=== PATIENT | female | born 1985 | race Caucasian/White ===

== ENCOUNTER 2020-09-30 20:00 | Emergency (ER) | payer SELFPAY ==
[2020-09-30 20:45] VITALS: BP 94/59; PULSE 54; RESP 18; TEMP 36.7; O2SAT 98; BMI 18.8
--- NOTE | 2020-09-30 20:54 | ED_ITS ---
HPI - Abdominal Pain General: Chief Complaint: Abdominal Pain Stated Complaint: severe right ab pain Time Seen by Provider: 09/30/20 20:53 History of Present Illness: HPI narrative: Patient is a 35-year-old female comes to the ED with abdominal pain and nausea. Patient says symptoms started early this morning and woke her up. She says her pain is located in the right upper quadrant and she rates it about an 8 out of 10. She describes it as a sharp pain. She reports also having some nausea and has had 1 episode of emesis today. She says pain gets worse after she eats something. She also describes for the last couple weeks having some nausea and abdominal pain after she eats certain foods. Patient has a past surgical history of an appendectomy. Denies any fever, chills, chest pain, shortness of breath, diarrhea, constipation, dysuria or hematuria. Associated Symptoms: Reports nausea and vomiting; Denies chills, constipation, diarrhea, dysuria, fever(s), hematochezia and hematuria Review of Systems Const: Denies: fever(s), chills or fatigue Eyes: Denies: change in vision or eye discomfort ENMT: Denies: throat pain, odynophagia, nasal discharge or nasal congestion Card: Denies: chest pain, palpitations, edema, swelling of feet/ankles, dyspnea on exertion or orthopnea Resp: Denies: dyspnea, productive cough or non-productive cough GI: Reports: abdominal pain, nausea and vomiting; Denies: diarrhea, constipation or hematochezia : Denies: flank pain, dysuria or hematuria Musc: Denies: neck pain, back pain or extremity swelling Skin/Breast: Denies: rash or new lesions Neuro: Denies: headache(s), numbness in extremities or weakness in extremities Physical Exam Const: COMMON NORMALS: patient oriented x3 and alert GENERAL APPEARANCE: cooperative and in distress (Patient appears in some pain and is in the position when I enter the ) HENMT: COMMON NORMALS: normocephalic HEAD & SCALP: normocephalic MOUTH: Normal oral and palatal mucosa present THROAT: posterior oropharynx normal and uvula midline Eye: COMMON NORMALS: Equal, round and reactive pupils present PUPIL: Yes Equal, round and reactive pupils present Neck/C-Spine: COMMON NORMALS: supple GENERAL: Yes normal visual inspection Resp: COMMON NORMALS: normal respiratory effort, No retractions, No use of accessory muscles and clear to auscultation bilaterally AUSCULTATION: clear to auscultation bilaterally Cardio: COMMON NORMALS: regular rate, regular rhythm, S1 normal heart sound present, S2 normal heart sound present, No gallops present (Cardio), No clicks present (Cardio), No murmurs present (Cardio) and Peripheral pulses 2+ throughout RATE: regular rate RHYTHM: regular rhythm HEART SOUNDS: S1 normal heart sound present and S2 normal heart sound present PERIPHERAL PULSES: Peripheral pulses 2+ throughout GI: COMMON NORMALS: Normal to inspection, nondistended, normoactive bowel sounds present, Soft to palpation and no masses PALPATION: Yes Soft to palpation and Yes Tenderness to palpation present (GI) Details: RUQ (Chaudhry sign positive) : COMMON NORMALS: Yes no CVA tenderness BLADDER/KIDNEY EXAM: Yes no CVA tenderness Back/Pelvis: COMMON NORMALS: no CVA tenderness Extremity: COMMON NORMALS: normal to inspection and no pedal edema Neuro: COMMON NORMALS: patient oriented x3 SENSORIUM/ORIENTATION: Yes alert GAIT: Yes Normal gait present Skin: GENERAL SKIN EXAM: dry skin Course Reevaluation(s): Reevaluation #1: Patient says her symptoms have greatly improved and she has no more pain currently. I also talked with patient about her hemoglobin being low and she told me that she has been diagnosed with anemia in the past and was taking iron supplements to treat it. Patient feels comfortable and ready to discharge. Time: 22:18 Vital Signs: Vital signs: Vital Signs Temperature 98.1 F 09/30/20 23:01 Pulse Rate 52 L 09/30/20 23:01 Respiratory Rate 14 09/30/20 23:01 Blood Pressure 98/62 09/30/20 23:01 Pulse Oximetry 98 09/30/20 23:01 MDM - Abdominal Pain MDM Narrative: Medical decision making narrative: Patient is a 35-year-old female comes to the ED with abdominal pain and nausea. Abdominal pain is located in the right upper quadrant. Patient says she has had symptoms like this in the past but today pain was more severe. She says it gets worse with food and with certain types of food. Exam findings remarkable for right upper quadrant tenderness and positive Chaudhry sign. No other remarkable exam findings. Vital stable. Hemoglobin 9.9 rest of CBC and CMP were unremarkable. Lipase normal hCG negative. UA unremarkable. Ultrasound gallbladder showed no acute gallbladder findings, no gallstones and common bile duct was normal. Patient was diagnosed with biliary colic and anemia. She was told to follow-up with her PCP in the next 3 to 5 days to recheck her hemoglobin. I have placed an order with case management for patient to be referred to general surgery for evaluation of her gallbladder. Patient was discharged with a written prescription of hydrocodone 5/325 mg #8 tablets and Zofran. Patient told to start with clear liquid diet and advance as tolerated. Return to ED precautions given. I told her that porter sample case will contact her in a several days set up appoint with general surgery. Patient understood agree with plan. Lab Data: Attestation: I reviewed the patient's lab results. Labs: Lab Results 09/30/20 09/30/20 09/30/20 Range/Units 19:30 19:30 21:16 WBC 7.1 (4.0-10.0) 10^3/ uL RBC 3.62 L (4.1-5.3) 10^6/u L Hgb 9.9 L (11.5-15.3) g/dL Hct 31.7 L (37.0-47.0) % MCV 87.6 (81-99) fL MCH 27.3 L (28.0-34.0) pg MCHC 31.2 (30.0-36.0) g/dL RDW 16.2 H (12.1-15.1) % Plt Count 268 (130-400) 10^3/c mm MPV 10.4 (7.4-10.4) fL Neut % (Auto) 55.5 % Lymph % (Auto) 34.1 % [place] % (Auto) 7.6 % Eos % (Auto) 1.7 % Baso % (Auto) 1.0 % Neut # (Auto) 3.93 (1.8-7.7) 10^3/u L Lymph # (Auto) 2.4 (0.8-4.8) 10^3/u L [place] # (Auto) 0.5 (0.2-0.9) 10^3/u L Eos # (Auto) 0.1 (0.0-0.8) 10^3/u L Baso # (Auto) 0.1 (0.0-0.1) 10^3/u L Nucleated RBC % (a uto) 0 % Nucleated RBCs # 0.0 /100WBC Sodium 135 L (136-145) mmol/L Potassium 3.9 (3.5-5.1) mmol/L Chloride 104 (98-107) mmol/L Carbon Dioxide 24 (22-29) mmol/L Anion Gap 10.9 (5-19) BUN 8 (6-20) mg/dL Creatinine 0.6 (0.5-0.9) mg/dL GFR Calculation 115.1 (90-130) mL/min Glucose 96 (65-115) mg/dL Calculated Osmolal ity 278 L (285-295) mOsm/k g Calcium 8.4 L (8.5-10.5) mg/dL Total Bilirubin 0.2 (0.15-1.2) mg/dL AST 15 (0-32) U/L ALT 12 (0-33) U/L Alkaline Phosphata se 62 (35-105) IU/L Total Protein 6.5 L (6.6-8.7) g/dL Albumin 4.0 (3.5-5.2) g/dL Globulin 2.5 (1.3-4.6) g/dL Lipase 29 (13-60) U/L HCG, Qual Negative (Negative) Urine Color (Yellow) Urine Appearance (CLEAR) Urine pH (5-7) Ur Specific Gravit y (1.005-1.030) Urine Protein (Negative) Urine Glucose (UA) (Normal) Urine Ketones (Negative) Urine Blood (Negative) Urine Nitrate (Negative) Urine Bilirubin (Negative) Urine Urobilinogen (Negative) mg/dL Ur Leukocyte Nichole ase (Negative) 09/30/20 Range/Units 21:16 WBC (4.0-10.0) 10^3/ uL RBC (4.1-5.3) 10^6/u L Hgb (11.5-15.3) g/dL Hct (37.0-47.0) % MCV (81-99) fL MCH (28.0-34.0) pg MCHC (30.0-36.0) g/dL RDW (12.1-15.1) % Plt Count (130-400) 10^3/c mm MPV (7.4-10.4) fL Neut % (Auto) % Lymph % (Auto) % [place] % (Auto) % Eos % (Auto) % Baso % (Auto) % Neut # (Auto) (1.8-7.7) 10^3/u L Lymph # (Auto) (0.8-4.8) 10^3/u L [place] # (Auto) (0.2-0.9) 10^3/u L Eos # (Auto) (0.0-0.8) 10^3/u L Baso # (Auto) (0.0-0.1) 10^3/u L Nucleated RBC % (a uto) % Nucleated RBCs # /100WBC Sodium (136-145) mmol/L Potassium (3.5-5.1) mmol/L Chloride (98-107) mmol/L Carbon Dioxide (22-29) mmol/L Anion Gap (5-19) BUN (6-20) mg/dL Creatinine (0.5-0.9) mg/dL GFR Calculation (90-130) mL/min Glucose (65-115) mg/dL Calculated Osmolal ity (285-295) mOsm/k g Calcium (8.5-10.5) mg/dL Total Bilirubin (0.15-1.2) mg/dL AST (0-32) U/L ALT (0-33) U/L Alkaline Phosphata se (35-105) IU/L Total Protein (6.6-8.7) g/dL Albumin (3.5-5.2) g/dL Globulin (1.3-4.6) g/dL Lipase (13-60) U/L HCG, Qual (Negative) Urine Color Yellow (Yellow) Urine Appearance Clear (CLEAR) Urine pH 7 (5-7) Ur Specific Gravit y 1.005 (1.005-1.030) Urine Protein Neg (Negative) Urine Glucose (UA) Norm (Normal) Urine Ketones Negative (Negative) Urine Blood Neg (Negative) Urine Nitrate Negative (Negative) Urine Bilirubin Neg (Negative) Urine Urobilinogen Norm (Negative) mg/dL Ur Leukocyte Nichole ase Negative (Negative) Imaging Data ^: US: Attestation: I personally reviewed and interpreted this imaging study as follows: Radiologist's impression: Ultrasound gallbladder?prelim report?no acute gallbladder findings. No gallstones seen. Common bile duct normal. Discharge Plan Discharge Patient Disposition: Home Clinical Impression: Biliary colic Anemia Qualifiers: Anemia type: unspecified type Qualified Code(s): D64.9 - Anemia, unspecified Condition: Stable Prescriptions: New Zofran 4 mg tablet 4 mg PO Q8H Qty: 20 RF: 0 No Action omeprazole 40 mg Capsule,Delayed Release(Dr/Ec) 40 mg PO BID RF: 0 Discharge Orders: Discharge ED (Routine); Ordered 09/30/20 Ordered By: Sunil Miller Discharge Diet: Advance as tolerated and Clear Liquid Discharge Activity: Increase activity as tolerated Patient Instructions: Biliary Colic (ED), Anemia (ED), Opioid Safety Activity Restrictions/Additional Instructions: Follow-up with medical provider as directed. Contact your PCP and have your hemoglobin lab rechecked in the next 3 to 5 days. Case management will contact you in the next several days to set up an appointment with a general surgeon. Take medications as prescribed. Start with clear liquid diet then advance as tolerated. Avoid foods that aggravate symptoms. Return to the ER or your medical provider if condition worsens. Please read and understand discharge instructions. If any questions, please ask. Stand Alone Forms: Work/School Release Coding Level of Care Code ED Set Up [employer] for [employer] Fwalysa Exam Comprehensive
--- NOTE | 2020-09-30 21:01 | US_ITS ---
WS: [id number] ULTRASOUND ABDOMEN LIMITED CLINICAL INFORMATION: ruq tenderness, nauseous and positive Chaudhry sign. COMPARISON: None. FINDINGS: Prior appendectomy. Liver Size: Normal. Craniocaudal length: 13.4 cm. Echogenicity: Normal. Surface nodularity: None. Mass (size and location): None. Bile ducts Intrahepatic ducts: Normal. Common bile duct diameter: 0.5 cm. Gallbladder Normal. Gallstones: None. Gallbladder sludge: None. Gallbladder wall thickening: None. Pericholecystic fluid: None. Sonographic Chaudhry sign: Absent. Pancreas Normal as visualized. Right kidney: Normal. Hydronephrosis: None. Size: 10.7 cm x 5.3 cm x 4.9 cm. Abdominal aorta and IVC Visualized portions are normal. Ascites: None. US/US gall bladder [id number] IMPRESSION: Normal right upper quadrant ultrasound.
--- NOTE | 2020-09-30 21:05 | PC.PHAR ---
PT STATES SHE TOOK A NORCO 5/325 TO THAT WAS PRESCRIBED TO SOMEONE ELSE. SHE STATES SHE JUST NEEDED IT FOR THE PAIN.
[2020-09-30 21:21] LABS: Add Urine Microscopic? NO; Charge for UA Resulting for Rev
[2020-09-30 21:24] LABS: Bilirubin Urine Neg (Negative); Blood Urine Neg (Negative); Glucose Urine UA Norm (Normal); Ketones Urine Negative (Negative); Leukocyte Esterase Urine Negative (Negative); Nitrate Urine Negative (Negative); Protein Urine Neg (Negative); Specific Gravity, Urine 1.005 (1.005-1.030); Urine Appearance Clear (CLEAR); Urine Color Yellow (Yellow); Urobilinogen Urine Norm (Negative); pH Urine 7 (5-7)
[2020-09-30] MEDS: sodium chloride 0.9% 1,000 ML 999 ML IV (21:27)
[2020-09-30 21:28] VITALS: RESP 16; O2SAT 98
[2020-09-30] MEDS: morphine 4 mg/mL SDV 1 mL IVP (21:28)
[2020-09-30] MEDS: ondansetron 2 mg/ML SDV 2 mL 4 MG IVP (21:28)
[2020-09-30 21:36] LABS: Basophils # 0.1 10^3/uL (0.0-0.1); Eosinophils # 0.1 10^3/uL (0.0-0.8); Eosinophils % 1.7 %; Hematocrit 31.7 % (37.0-47.0); Hemoglobin 9.9 g/dL (11.5-15.3); Lymphocytes # 2.4 10^3/uL (0.8-4.8); Lymphocytes % 34.1 %; Mean Corpuscular HGB Conc 31.2 g/dL (30.0-36.0); Mean Corpuscular Hemoglobin 27.3 pg (28.0-34.0); Mean Corpuscular Volume 87.6 fL (81-99); Mean Platelet Volume 10.4 fL (7.4-10.4); Monocytes # 0.5 10^3/uL (0.2-0.9); Monocytes % 7.6 %; Neutrophils # 3.93 10^3/uL (1.8-7.7); Neutrophils % 55.5 %; Nucleated Red Blood Cells % 0 %; Platelet Count 268 10^3/cmm (130-400); Red Blood Count 3.62 10^6/uL (4.1-5.3); Red Cell Distribution Width 16.2 % (12.1-15.1); White Blood Count 7.1 10^3/uL (4.0-10.0)
[2020-09-30 21:53] LABS: Alanine Aminotransferase 12 U/L (0-33); Alkaline Phosphatase 62 IU/L (35-105); Anion Gap 10.9 (5-19); Aspartate Amino Transferase 15 U/L (0-32); Blood Urea Nitrogen 8 mg/dL (6-20); Calcium 8.4 mg/dL (8.5-10.5); Carbon Dioxide 24 mmol/L (22-29); Chloride 104 mmol/L (98-107); Globulin 2.5 g/dL (1.3-4.6); Glomerular Filtration Rate 115.1 mL/min (90-130); Glucose 96 mg/dL (65-115); Lipase 29 U/L (13-60); Osmolality Calculated 278 mOsm/kg (285-295); Potassium 3.9 mmol/L (3.5-5.1); Sodium 135 mmol/L (136-145); Total Bilirubin 0.2 mg/dL (0.15-1.2); Total Protein 6.5 g/dL (6.6-8.7)
[2020-09-30 22:32] LABS: HCG Qualitative Urine. Negative (Negative)
[2020-09-30] MEDS: HYDROcodone-acetaminophen 5-325 mg Tablet 1 TAB PO (22:55)
[2020-09-30 23:01] VITALS: BP 98/62; PULSE 52; RESP 14; TEMP 36.7; O2SAT 98
--- NOTE | 2020-10-01 08:47 | DCPLANNER ---
system administration manager had message to schedule a followup appointment for patient with general surgery for biliary colic. system administration manager emailed patients information to David at [facility] General Surgery. Patients information will be printed and reviewed. Clinic will call patient with appointment information.
--- NOTE | 2020-10-03 08:30 | DCPLANNER ---
Patient had a follow up appointment scheduled for 10.02.[address] Lockhart at [facility] General Surgery - patient did attend appointment.
== END 2020-09-30 23:03 | disposition home or self-care (01) ==
PROVIDERS: Emergency Medicine; Emergency Provider Physician Assistant
DX: K80.50 Calculus of bile duct without cholangitis or cholecystitis without obstruction (principal); D64.9 Anemia, unspecified
CPT/HCPCS: 76705; 80053; 81003; 81025; 83690; 85025; 96361; 96374; 96375; 99284; J2270; J2405; J7030

== ENCOUNTER 2020-10-15 09:43 | Outpatient (CLI) | payer SELFPAY ==
--- NOTE | 2020-10-15 10:00 | NM_ITS ---
WS: [id number] NUCLEAR MEDICINE HIDA SCAN CLINICAL INFORMATION: K80.50 - Calculus of bile duct without cholangitis or cholecystitis without obs truction TECHNIQUE: Following intravenous administration of 7.9 mCi of technetium 99m mebrofenin, images of th e abdomen were obtained over the course of 60 minutes. Next, gallbladder ejection fraction was determ ined by obtaining preprandial and one-hour postprandial images of the gallbladder following oral harsha stion of Ensure. COMPARISON: Ultrasound September 30, 2020 FINDINGS: Normal hepatic uptake at 5 minutes. Normal hepatic excretion. Gallbladder is visualized by 15 minutes . No evidence of acute cholecystitis. Normal small bowel and colon bile duct activity. No evidence of obstructive choledocholithiasis. Gall bladder ejection fraction 85% within normal limits. No evidence of chronic cholecystitis. NM/NM hepatobiliary w phar* [id number] IMPRESSION: 1. No evidence of acute or chronic cholecystitis. 2. Normal gallbladder ejection fraction 85% within normal limits.
== END 2020-10-15 09:44 | disposition home or self-care (01) ==
PROVIDERS: Visit Provider Surgery
DX: K80.50 Calculus of bile duct without cholangitis or cholecystitis without obstruction (principal)
CPT/HCPCS: 78227; A9537

== ENCOUNTER 2021-05-11 19:28 | Emergency (ER) | payer SELFPAY ==
[2021-05-11 20:26] VITALS: BP 91/49; PULSE 69; RESP 18; TEMP 36.4; O2SAT 97; BMI 17.2
[2021-05-11 21:15] VITALS: BP 97/59; PULSE 64; RESP 16; O2SAT 99
[2021-05-11 21:17] LABS: Blood Urine 3+ (Negative); Glucose Urine UA Norm (Normal); Ketones Urine Negative (Negative); Protein Urine Neg (Negative); Urine Appearance Clear (CLEAR); Urine Color Yellow (Yellow); pH Urine 6.5 (5-7)
[2021-05-11 21:18] LABS: Add Urine Microscopic? YES; Bacteria Urine 3+ /hpf; Bilirubin Urine Neg (Negative); Leukocyte Esterase Urine Negative (Negative); Nitrate Urine Positive (Negative); RBC Urine 15-25 /hpf (0-2); Squamous Epithelial Cell Urine 0-4 /hpf (0-5); Urobilinogen Urine Norm (Negative); WBC Urine 0-4 /hpf (0-5)
[2021-05-11 21:19] LABS: Add Urine Culture? Yes
[2021-05-11 22:40] LABS: Basophils # 0.1 10^3/uL (0.0-0.1); Basophils % 0.9 %; Eosinophils # 0.2 10^3/uL (0.0-0.8); Eosinophils % 2.6 %; Hematocrit 28.4 % (37.0-47.0); Hemoglobin 9.4 g/dL (11.5-15.3); Lymphocytes # 2.2 10^3/uL (0.8-4.8); Lymphocytes % 34.1 %; Mean Corpuscular HGB Conc 33.1 g/dL (30.0-36.0); Mean Corpuscular Volume 87.7 fl (81-99); Mean Platelet Volume 9.9 fL (7.4-10.4); Monocytes # 0.6 10^3/uL (0.2-0.9); Monocytes % 9.2 %; Neutrophils # 3.41 10^3/uL (1.8-7.7); Nucleated Red Blood Cells % 0 %; Platelet Count 323 10^3/cmm (130-400); Red Blood Count 3.24 10^6/uL (4.1-5.3); Red Cell Distribution Width 15.7 % (12.1-15.1); White Blood Count 6.4 10^3/uL (4.0-10.0)
[2021-05-11 22:47] LABS: HCG, Serum Qual Negative (Negative)
[2021-05-11 23:03] LABS: Alanine Aminotransferase 8 U/L (0-33); Albumin Level 3.7 g/dL (3.5-5.2); Alkaline Phosphatase 47 IU/L (35-105); Anion Gap 14.7 (5-19); Aspartate Amino Transferase 11 U/L (0-32); Blood Urea Nitrogen 11 mg/dL (6-20); Calcium 8.4 mg/dL (8.5-10.5); Carbon Dioxide 22 mmol/L (22-29); Chloride 103 mmol/L (98-107); Creatinine Clr Calc Pharmacy 78.7839; Globulin 2.5 g/dL (1.3-4.6); Glomerular Filtration Rate 82.6 mL/min (90-130); Glucose 84 mg/dL (65-115); Osmolality Calculated 281 mOsm/kg (285-295); Potassium 3.7 mmol/L (3.5-5.1); Sodium 136 mmol/L (136-145); Thyroid Stimulating Hormone 2.27 uIU/mL (0.27-4.20); Total Bilirubin 0.2 mg/dL (0.15-1.2); Total Protein 6.2 g/dL (6.6-8.7)
--- NOTE | 2021-05-11 23:58 | W.ED.FEMALGU ---
HPI - Female Genitourinary General: Chief complaint: Vaginal Bleeding Stated complaint: Vaginal Bleeding ABD Pain Time Seen by Provider: 05/11/21 23:58 History of Present Illness: HPI Narrative: 35-year-old female comes in today with complaints of vaginal bleeding. Patient reports over the last 3 hours she has had to change her pad 6 times. Bleeding has decreased after coming to the ER. Patient appears well. Patient appears no acute distress. Review of the record notes that patient has had a history of anemia. Patient denies any other chronic medical problems. Associated symptoms: Reports vaginal bleeding Review of Systems General: Reports: 10 or more systems reviewed and unremarkable except in HPI and below : Reports: other (Vaginal bleeding) Physical Exam Const: COMMON NORMALS: no acute distress and patient oriented x3 GENERAL APPEARANCE: cooperative HENMT: COMMON NORMALS: normocephalic and Normal external nose present HEAD & SCALP: normal to inspection and normocephalic NOSE: Normal external nose present MOUTH: Normal oral and palatal mucosa present Eye: GENERAL EYE: appearance normal, both eyes and all related structures Neck/C-Spine: COMMON NORMALS: full ROM Lymph: LYMPHATIC: no lymphadenopathy noted Chest: COMMONS NORMALS: normal inspection of the chest Resp: COMMON NORMALS: normal respiratory effort EFFORT & INSPECTION: Yes able to speak in complete sentences Cardio: COMMON NORMALS: regular rate and regular rhythm RATE: regular rate RHYTHM: regular rhythm GI: AUSCULTATION: Yes normoactive bowel sounds PALPATION: Yes Tenderness to palpation present (GI) (Suprapubic tenderness) : COMMON NORMALS: Yes no CVA tenderness BLADDER/KIDNEY EXAM: Yes no CVA tenderness SPECULUM EXAM - VAGINA: Yes vaginal bleeding SPECULUM EXAM - CERVIX: Yes Cervical bleeding and No Abnormal cervical discharge present OB/EXTERNAL & SPECULUM: vaginal bleeding Back/Pelvis: COMMON NORMALS: no CVA tenderness and thoracic and lumbar spine normal to inspection Extremity: COMMON NORMALS: normal to inspection Neuro: COMMON NORMALS: patient oriented x3 and moves all extremities Psych: COMMON NORMALS: mental status grossly normal and cooperative Skin: COMMON NORMALS: no rashes or lesions noted GENERAL SKIN EXAM: no rashes or lesions noted Course Vital Signs: Vital signs: Vital Signs Temperature 97.6 F 05/11/21 20:26 Pulse Rate 64 05/11/21 21:15 Respiratory Rate 16 05/11/21 21:15 Blood Pressure 97/59 05/11/21 21:15 Pulse Oximetry 99 05/11/21 21:15 MDM - Female MDM Narrative: Medical decision making narrative: Patient comes in with abnormal uterine bleeding. Patient reports increased bleeding for the last 4 days. On exam abdomen soft with some tenderness in the suprapubic area. Respirations are even lungs are clear to auscultation. Pelvic exam noted a normal-appearing cervix with some blood at the opening. Differential diagnosis includes uterine fibroids, abnormal uterine bleeding, ovarian cyst, vaginal tear. No sign of injury was noted. Laboratory values were unremarkable except for some significant anemia. Hemoglobin is 9.4 today review of the record though noted that patient had a hemoglobin 9.8 in September. Patient did not know that she had had some problems with anemia. Ultrasound of the pelvis noted no significant abnormalities. I reviewed the exam with patient we will start her on some norethindrone 5 mg tablets daily for the next 7 days, it was noted on patient's urinalysis that she did have positive nitrates I will treat that with Macrobid for the next 5 days. Patient will be referred to [facility]ICE PROFESSION[facility] for further evaluation and treatment. Patient reported understanding agreed to plan. Lab Data: Labs: Lab Results 05/11/21 05/11/21 05/11/21 20:32 22:18 22:18 WBC 6.4 10^3/uL 10^3/ uL (4.0-10.0) RBC 3.24 10^6/uL L 10 ^6/uL (4.1-5.3) Hgb 9.4 g/dL L g/dL (11.5-15.3) Hct 28.4 % L % (37.0-47.0) MCV 87.7 fl fl (81-99) MCH 29.0 pg pg (28.0-34.0) MCHC 33.1 g/dL g/dL (30.0-36.0) RDW 15.7 % H % (12.1-15.1) Plt Count 323 10^3/cmm 10^3 /cmm (130-400) MPV 9.9 fL fL (7.4-10.4) Neut % (Auto) 53.0 % % Lymph % (Auto) 34.1 % % Elliott % (Auto) 9.2 % % Eos % (Auto) 2.6 % % Baso % (Auto) 0.9 % % Neut # (Auto) 3.41 10^3/uL 10^3 /uL (1.8-7.7) Lymph # (Auto) 2.2 10^3/uL 10^3/ uL (0.8-4.8) Elliott # (Auto) 0.6 10^3/uL 10^3/ uL (0.2-0.9) Eos # (Auto) 0.2 10^3/uL 10^3/ uL (0.0-0.8) Baso # (Auto) 0.1 10^3/uL 10^3/ uL (0.0-0.1) Nucleated RBC % (a uto) 0 % % Nucleated RBCs # 0.0 /100WBC /100W BC Sodium 136 mmol/L mmol/L (136-145) Potassium 3.7 mmol/L mmol/L (3.5-5.1) Chloride 103 mmol/L mmol/L (98-107) Carbon Dioxide 22 mmol/L mmol/L (22-29) Anion Gap 14.7 (5-19) BUN 11 mg/dL mg/dL (6-20) Creatinine 0.8 mg/dL mg/dL (0.5-0.9) GFR Calculation 82.6 mL/min L mL/ min (90-130) Glucose 84 mg/dL mg/dL (65-115) Calculated Osmolal ity 281 mOsm/kg L mOs m/kg (285-295) Calcium 8.4 mg/dL L mg/dL (8.5-10.5) Total Bilirubin 0.2 mg/dL mg/dL (0.15-1.2) AST 11 U/L U/L (0-32) ALT 8 U/L U/L (0-33) Alkaline Phosphata se 47 IU/L IU/L (35-105) Total Protein 6.2 g/dL L g/dL (6.6-8.7) Albumin 3.7 g/dL g/dL (3.5-5.2) Globulin 2.5 g/dL g/dL (1.3-4.6) TSH 2.27 uIU/mL uIU/m L (0.27-4.20) HCG, Qual Urine Color Yellow (Yellow) Urine Appearance Clear (CLEAR) Urine pH 6.5 (5-7) Ur Specific Gravit y 1.010 (1.005-1.030) Urine Protein Neg (Negative) Urine Glucose (UA) Norm (Normal) Urine Ketones Negative (Negative) Urine Blood 3+ H (Negative) Urine Nitrate Positive H (Negative) Urine Bilirubin Neg (Negative) Urine Urobilinogen Norm mg/dL mg/dL (Negative) Ur Leukocyte Nichole ase Negative (Negative) Urine RBC 15-25 /hpf H /hpf (0-2) Urine WBC 0-4 /hpf H /hpf (0-5) Ur Squamous Epith Cells 0-4 /hpf H /hpf (0-5) Amorphous Sediment Not Reportable Urine Bacteria 3+ /hpf H /hpf (NONE) 05/11/21 22:18 WBC RBC Hgb Hct MCV MCH MCHC RDW Plt Count MPV Neut % (Auto) Lymph % (Auto) Elliott % (Auto) Eos % (Auto) Baso % (Auto) Neut # (Auto) Lymph # (Auto) Elliott # (Auto) Eos # (Auto) Baso # (Auto) Nucleated RBC % (a uto) Nucleated RBCs # Sodium Potassium Chloride Carbon Dioxide Anion Gap BUN Creatinine GFR Calculation Glucose Calculated Osmolal ity Calcium Total Bilirubin AST ALT Alkaline Phosphata se Total Protein Albumin Globulin TSH HCG, Qual Negative (Negative) Urine Color Urine Appearance Urine pH Ur Specific Gravit y Urine Protein Urine Glucose (UA) Urine Ketones Urine Blood Urine Nitrate Urine Bilirubin Urine Urobilinogen Ur Leukocyte Nichole ase Urine RBC Urine WBC Ur Squamous Epith Cells Amorphous Sediment Urine Bacteria Discharge Plan Discharge Patient Disposition: Home Clinical Impression: Abnormal uterine bleeding (AUB) Condition: Stable Prescriptions: New Aygestin 5 mg tablet 5 mg PO DAILY 7 Days RF: 0 Macrobid 100 mg capsule 100 mg PO BID 5 Days Qty: 10 RF: 0 No Action omeprazole 40 mg Capsule,Delayed Release(Dr/Ec) 40 mg PO BID RF: 0 Zofran 4 mg tablet 4 mg PO Q8H Qty: 20 RF: 0 Discharge Orders: Discharge ED (Routine); Ordered 05/12/21 Ordered By: Andrew Schneider Discharge Diet: Usual diet Discharge Activity: Increase activity as tolerated Patient Instructions: Abnormal (Dysfunctional) Uterine Bleeding (ED), Opioid Safety Activity Restrictions/Additional Instructions: Drink plenty of water. Take medications as directed. Follow-up with primary care for further instruction. Case management will contact you regarding a follow-up appointment with [facility]ICE PROFESSIONAL. Return to the ER for worsening symptoms, high fever, or new concerns. Stand Alone Forms: Work/School Release Coding Level of Care Code ED Territory Sales Executive for [employer]eroz Guerra Exam Comprehensive
--- NOTE | 2021-05-12 00:23 | USR_ITS ---
PROCEDURE INFORMATION: Exam: US Pelvis, Transvaginal Exam date and time: 05/12/2021 12:23 AM Age: 35 years old Clinical indication: Menstruation abnormalities; Irregular menstruation; Additional info: Abnormal uterine bleeding TECHNIQUE: Imaging protocol: Real-time transvaginal pelvic ultrasound with image documentation. Transvaginal imaging was used for better evaluation of the endometrium, adnexa, and/or cervix. COMPARISON: No relevant prior studies available. FINDINGS: Uterus: The uterus is retroflexed. Contours are normal. The endometrium is thin and homogeneous. Endometrial stripe thickness is 4 mm. Right ovary/adnexa: The right ovary is morphologically normal. There is normal blood flow in the right ovary. The right ovary measures 3.8 x 3.0 x 1.7 cm. Left ovary/adnexa: The left ovary is morphologically normal. There is normal blood flow in the left ovary. The left ovary measures 3.5 x 2.9 x 1.4 cm. Intraperitoneal space: No pelvic free fluid. US/US transvaginal [id number] IMPRESSION: No pathologic findings. Radiation Dose CTDIVOL = (mGy): DLP = (mGy-cm)
[2021-05-12] MEDS: HYDROcodone-acetaminophen 5-325 mg Tablet 1 TAB PO (01:34)
[2021-05-12] MEDS: nitrofurantoin SR (BID) 100 mg Capsule PO (01:34)
[2021-05-12 01:37] VITALS: PULSE 74; RESP 16; O2SAT 96
--- NOTE | 2021-05-12 13:19 | DCPLANNER ---
payable manager had message to schedule a follow up appointment for patient with [facility]. payable manager [facility] the [facility], spoke with Sherly, gave clinic patients information. payable manager was told that patients information would be printed and reviewed. Clinic will call patient with appointment information.
--- NOTE | 2021-05-14 14:25 | DCPLANNER ---
Patient has a follow up appointment scheduled for , June 11, 2021 at 1:[address] Coleman at [facility]. Clinic will call patient with appointment information.
--- NOTE | 2021-06-25 14:27 | DCPLANNER ---
Patient had a follow up appointment scheduled for 06.11.21 with [facility] - appointment had been rescheduled.
== END 2021-05-12 01:38 | disposition home or self-care (01) ==
PROVIDERS: Emergency Provider Nurse Practitioner Family
DX: N93.9 Abnormal uterine and vaginal bleeding, unspecified (principal)
CPT/HCPCS: 76830; 80053; 81001; 84443; 84703; 85025; 93976; 99283

== ENCOUNTER 2021-06-04 19:49 | Emergency (ER) | payer SELFPAY ==
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
[2021-06-04 19:58] VITALS: BP 108/70; PULSE 68; RESP 18; TEMP 36.7; O2SAT 98; BMI 18.8
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
[2021-06-04 21:36] VITALS: PULSE 71; RESP 14; O2SAT 97
== END 2021-06-04 21:37 | disposition home or self-care (01) ==
PROVIDERS: Emergency Provider Physician Assistant
DX: S39.012A Strain of muscle, fascia and tendon of lower back, initial encounter (principal); S16.1XXA Strain of muscle, fascia and tendon at neck level, initial encounter; V89.2XXA Person injured in unspecified motor-vehicle accident, traffic, initial encounter
CPT/HCPCS: 70450; 72125; 72128; 72131; 99282